=== PATIENT | female | born 1965 | race Caucasian/White ===

== ENCOUNTER → 2016-10-17 | Outpatient (CLI) | payer OTHER ==
[~2016-10-17] MED LIST: AMLO-511 PO; CALC600T2 PO; DOCU250C28 PO; HYDR12.54 PO; OXYB10TA PO; QUET200T PO; QUET300T2 PO; RISP0.2515 PO
== END | disposition home or self-care (01) ==
LOC: RADPV 09:16
PROVIDERS: ATTEND Internal Medicine
DX: Z13.820 Encounter for screening for osteoporosis (principal); M81.0 Age-related osteoporosis without current pathological fracture
CPT/HCPCS: 77080

== ENCOUNTER 2022-09-25 17:38 | Emergency (ER) | payer OTHER ==
[~2022-09-25 17:38] MED LIST changes: +AMLO-257 PO; -AMLO-511 PO
[2022-09-25] MEDS ORDERED: EPINEPHrine 1:10,000 [1 MG/10 ML] SYRINGE IVP ONE (17:40)
[2022-09-25] MEDS ORDERED: SODIUM BICARBONATE [ADULT] 8.4% 50 MEQ/50 ML SYRINGE IVP ONE (17:40)
== END 2022-09-25 20:49 ==
LOC: EMS 17:39
DX: I46.9 Cardiac arrest, cause unspecified (principal); F31.9 Bipolar disorder, unspecified; I10 Essential (primary) hypertension; F20.9 Schizophrenia, unspecified
CPT/HCPCS: 99291; 92950; 31500; 82962; 94640; J0171; J3490